=== PATIENT | male | born 1960 | race Caucasian/White ===

== ENCOUNTER 2021-11-29 17:48 | Emergency (ER) | payer SELFPAY ==
[2021-11-29 18:03] VITALS: BP 176/95; PULSE 100; RESP 16; TEMP 37.2; O2SAT 95; BMI 26.1
[2021-11-29 18:21] VITALS: BP 176/96; PULSE 100; RESP 16; TEMP 37; O2SAT 98
--- NOTE | 2021-11-29 18:21 | W.ED.SKABFB ---
HPI - Skin/Abscess/Foreign Bdy General: Chief complaint: Skin/Abscess/Foreign Body Stated complaint: Rt side of face all swollen Time Seen by Provider: 11/29/21 18:12 History of Present Illness: Patient is a 61-year-old male comes to the ED with dental pain and right sided facial swelling. Symptoms started yesterday. Today when he woke up his facial swelling was more significant and in the right maxillary region. He contacted his primary care doctor and she tried to get him in today to get him on an antibiotic but she was unable to. She told him to come to the ED to be evaluated. His top teeth are bad and he is getting all of them pulled next month. He endorses dental pain in the right upper maxillary jaw near the molars. He has a history of past dental infections and says today symptoms are similar. Denies any problems breathing. Associated symptoms: Deny chills, fever(s), nausea or vomiting Review of Systems Const: Denies: fever(s), chills or fatigue Eyes: Denies: change in vision or eye discomfort ENMT: Reports: dental pain and sinus pain (right maxillary); Denies: throat pain, odynophagia, nasal discharge or nasal congestion Card: Denies: chest pain, palpitations, edema, swelling of feet/ankles, dyspnea on exertion or orthopnea Resp: Denies: dyspnea, productive cough or non-productive cough GI: Denies: abdominal pain, nausea, vomiting, diarrhea, constipation or hematochezia : Denies: flank pain, difficulty urinating, dysuria or hematuria Musc: Denies: neck pain, back pain or extremity swelling Skin/Breast: Denies: rash or new lesions Neuro: Denies: headache(s), numbness in extremities or weakness in extremities [facility] ED PFSH: Medical History No pertinent family history Surgical History No pertinent past surgical history Physical Exam Const: COMMON NORMALS: no acute distress, patient oriented x3 and alert GENERAL APPEARANCE: cooperative and comfortable HENMT: COMMON NORMALS: normocephalic HEAD & SCALP: normocephalic FACE & SINUS: edema on the right maxilla and Facial tenderness on exam of face and sinuses on the right maxilla MOUTH: Normal oral and palatal mucosa present TEETH & GINGIVA: Yes abnormal tooth and associated gingiva upper right third molar tender and with associated gingival edema and Yes poor dentition THROAT: posterior oropharynx normal and uvula midline Neck/C-Spine: COMMON NORMALS: supple GENERAL: Yes normal visual inspection Resp: COMMON NORMALS: normal respiratory effort, No retractions, No use of accessory muscles and clear to auscultation bilaterally AUSCULTATION: clear to auscultation bilaterally Cardio: COMMON NORMALS: regular rate, regular rhythm, S1 normal heart sound present, S2 normal heart sound present, No gallops present (Cardio), No clicks present (Cardio), No murmurs present (Cardio) and Peripheral pulses 2+ throughout RATE: regular rate RHYTHM: regular rhythm HEART SOUNDS: S1 normal heart sound present and S2 normal heart sound present PERIPHERAL PULSES: Peripheral pulses 2+ throughout GI: COMMON NORMALS: Normal to inspection, nondistended, normoactive bowel sounds present, Soft to palpation, non-tender and no masses PALPATION: Yes Soft to palpation : COMMON NORMALS: Yes no CVA tenderness BLADDER/KIDNEY EXAM: Yes no CVA tenderness Back/Pelvis: COMMON NORMALS: no CVA tenderness Extremity: COMMON NORMALS: normal to inspection Neuro: COMMON NORMALS: patient oriented x3 and moves all extremities SENSORIUM/ORIENTATION: Yes alert Skin: GENERAL SKIN EXAM: dry skin Course Vital Signs: Vital signs: Vital Signs Temperature 98.6 F 11/29/21 18:21 Pulse Rate 100 11/29/21 18:21 Respiratory Rate 16 11/29/21 18:21 Blood Pressure 176/96 11/29/21 18:21 Pulse Oximetry 98 11/29/21 18:21 MDM - Skin/Abscess/Foreign Bdy Medicial Decision Making Patient is a 61-year-old male who comes to the ED with dental pain and right maxillary facial swelling. He has an appointment with his dentist next month to have his upper teeth pulled. Patient is poor dental health with multiple dental caries and gingival edema on the upper right molar region. Patient has dental infection and was discharged home with a prescription for clindamycin some prednisone to help with the swelling. Return ED precautions given. Patient understood and agreed with plan. Discharge Plan Discharge Patient Disposition: Home Clinical Impression: Dental infection Condition: Stable Prescriptions: New clindamycin HCl 150 mg capsule 150 mg PO Q6H 10 Days Qty: 40 0RF prednisone 20 mg tablet 20 mg PO BID 3 Days Qty: 6 0RF Discharge Orders: Discharge ED (Routine); Ordered 11/29/21 Ordered By: Anjel Azar Referrals: Yadira Berg FNP [Referring] - Discharge Diet: Regular Discharge Activity: Increase activity as tolerated Patient Instructions: Dental Abscess (ED) Activity Restrictions/Additional Instructions: Follow-up with dentist at your next scheduled appointment for further treatment of dental pain. Take medications as prescribed. Take [id number] Tylenol or Aleve for any pain. Return to the ER or your medical provider if condition worsens. Please read and understand discharge instructions. Thank you for choosing [facility] for your healthcare needs today. Please realize this is an emergency room and that we are providing you with a medical screening exam and this may not be complete and all inclusive of all the testing and or work up that you may need to determine your ailment or severity of your illness. It is very important that you follow up as instructed or that you return to the Emergency Department should you have concerns or if your condition changes or worsens in any way. Coding Level of Care Code ED Hemodialysis Rn for Miracle Fwd Exam Comprehensive
[2021-11-29] MEDS: clindamycin 150 mg Capsule 300 MG PO (18:24)
[2021-11-29] MEDS: predniSONE 20 mg Tablet 60 MG PO (18:25)
== END 2021-11-29 18:29 | disposition home or self-care (01) ==
PROVIDERS: Emergency Provider Physician Assistant
DX: K04.7 Periapical abscess without sinus (principal)
CPT/HCPCS: 99283; J7512